=== PATIENT | female | born 1990 | race Caucasian/White ===

== ENCOUNTER 2017-10-19 01:32 | Emergency (ER) | payer MEDICAID ==
[~2017-10-19] VITALS: Ht 182.9 cm; Wt 75.3 kg
[2017-10-19 01:37] VITALS: Ht 182.9 cm; Wt 75.3 kg
[2017-10-19 02:26] VITALS: BP 122/96
== END 2017-10-19 02:26 | disposition home or self-care (01) ==
LOC: ED 01:32
DX: L02.413 Cutaneous abscess of right upper limb (principal); F19.10 Other psychoactive substance abuse, uncomplicated
CPT/HCPCS: J0690